=== PATIENT | male | born 1970 ===

== ENCOUNTER 2021-10-18 20:28 | Emergency (ER) | payer OTHER ==
[~2021-10-18] VITALS: Ht 182.9 cm; Wt 68.0 kg
[~2021-10-18 20:28] MED LIST: ALBU90OI INH; AMOCLA875 PO; AZIT250 PO; Advil200 M1 PO; CEPH500 PO; CHLO25 PO; COMBIVENT RESPIM4 GM INH; CYCL10 PO; DOXY100 PO; HYDACE5 PO; IBUHYD PO; IPRAOI INH; MULVITMIND PO; NAPR220 PO; ONDA4ODT MM; OXYACE5T PO; PENVK500 PO; PRED10 PO; PRED20 PO; Prednisone20 MG PO; Zithromax250 MG PO
[2021-10-18] MEDS ORDERED: AMOCLA875 PO (22:04)
== END 2021-10-18 22:09 | disposition home or self-care (01) ==
LOC: ER 20:28
DX: K04.7 Periapical abscess without sinus (principal); Z87.891 Personal history of nicotine dependence
CPT/HCPCS: A9270